=== PATIENT | male | born 1965 | race Caucasian/White ===

== ENCOUNTER 2021-11-21 23:45 | Inpatient (IN) | payer MEDICAID, OTHER ==
[~2021-11-21] VITALS: Ht 177.8 cm; Wt 74.1 kg
[~2021-11-21 23:45] MED LIST: AMBI5TAB; ZOLO50TA
[2021-11-22] MEDS ORDERED: NEUR800T PO (00:36)
[2021-11-22 00:42] LABS: HEMATOCRIT 45.1 % (42.0-52.0); HEMOGLOBIN 14.8 g/dl (13.5-17.5); MEAN CORPUSCULAR HEMOGLOBIN 28.8 pg (27.0-33.0); MEAN CORPUSCULAR HGB CONC 32.8 g/dl (32.0-36.5); MEAN CORPUSCULAR VOLUME 87.9 fl (80.0-96.0); PLATELET COUNT, AUTOMATED 356 10^3/uL (150-450); RED BLOOD COUNT 5.13 10^6/uL (4.30-6.10); WHITE BLOOD COUNT 8.2 10^3/uL (4.0-10.0)
[2021-11-22 01:14] LABS: ALBUMIN 4.2 GM/DL (3.2-5.2); ALT/SGPT 26 U/L (12-78); BILIRUBIN,DIRECT 0.3 MG/DL (0.0-0.2); BILIRUBIN,TOTAL 0.7 MG/DL (0.2-1.0); BLOOD UREA NITROGEN 11 MG/DL (7-18); CALCIUM LEVEL 9.6 MG/DL (8.5-10.1); CARBON DIOXIDE LEVEL 27 MEQ/L (21-32); CHLORIDE LEVEL 106 MEQ/L (98-107); CREATININE FOR GFR 0.89 MG/DL (0.70-1.30); ETHYL ALCOHOL (ETHANOL) 0.022 % (0.000-0.010); GLOMERULAR FILTRATION RATE > 60.0 (>56); GLUCOSE, FASTING 80 MG/DL (70-100); POTASSIUM SERUM 3.7 MEQ/L (3.5-5.1); SALICYLATE LEVEL 2.7 MG/DL (5.0-30.0); SODIUM LEVEL 140 MEQ/L (136-145); TOTAL PROTEIN 7.9 GM/DL (6.4-8.2)
[2021-11-22 01:15] LABS: ACETAMINOPHEN LEVEL < 2.0 UG/ML (10.0-30.0)
[2021-11-22 02:49] LABS: RSV AMPLIFICATION NEGATIVE (NEGATIVE)
[2021-11-22] MEDS ORDERED: HOME MED LIST COMPLETE! XX SCH (05:35)
[2021-11-22 05:39] LABS: AMPHETAMINES LEVEL URINE POSITIVE (NEGATIVE); BARBITURATES URINE NEGATIVE (NEGATIVE); BENZODIAZEPINES URINE NEGATIVE (NEGATIVE); CANNABINOIDS URINE POSITIVE (NEGATIVE); COCAINE METABOLITE URINE POSITIVE (NEGATIVE); METHADONE URINE NEGATIVE (NEGATIVE); OPIATES URINE NEGATIVE (NEGATIVE); PHENCYCLIDINE URINE NEGATIVE (NEGATIVE)
[2021-11-23] MEDS ORDERED: traZODone 50 MG TAB PO PRN (12:10)
[2021-11-23] MEDS ORDERED: MAALOX 30 ML SUSP *UDC PO PRN (12:10)
[2021-11-23] MEDS ORDERED: diphenhydrAMINE 25MG CAP PO PRN (12:10)
[2021-11-23] MEDS ORDERED: IBUPROFEN 400MG TAB PO PRN (12:10)
[2021-11-23] MEDS ORDERED: MOM 30ML SUSPENSION UDC PO PRN (12:10)
[2021-11-23] MEDS ORDERED: LORazepam 2 MG TAB PO PRN (12:10)
[2021-11-23] MEDS: FOLIC ACID 1 MG TAB PO SCH (13:47)
[2021-11-23] MEDS: MULTIVITAMINS/MINERALS THERAP 1 TAB PO SCH (13:47)
[2021-11-23] MEDS: NICOTINE 21MG/24HR 1 EA TRANSDERMAL TD SCH (13:48)
[2021-11-23] MEDS: THIAMINE 100 MG TAB PO SCH ×2 (13:48→21:09)
[2021-11-23 15:09] VITALS: BP 128/90
[2021-11-23] MEDS: GABAPENTIN 400MG CAP PO SCH ×2 (16:28→21:09)
[2021-11-24 05:55] VITALS: BP 107/65
[2021-11-24] MEDS: GABAPENTIN 400MG CAP PO SCH ×3 (08:25→20:33)
[2021-11-24] MEDS: FOLIC ACID 1 MG TAB PO SCH (08:25)
[2021-11-24] MEDS: THIAMINE 100 MG TAB PO SCH ×2 (08:25→20:33)
[2021-11-24] MEDS: MULTIVITAMINS/MINERALS THERAP 1 TAB PO SCH (08:25)
[2021-11-24] MEDS: NICOTINE 21MG/24HR 1 EA TRANSDERMAL TD SCH (09:00)
[2021-11-24] MEDS ORDERED: NICOTINE 21MG/24HR 1 EA TRANSDERMAL TD PRN (11:05)
[2021-11-24] MEDS: VENLAFAXINE **XR** 37.5 MG CAPSULE PO SCH (11:10)
[2021-11-24 17:56] VITALS: BP 130/82
[2021-11-24 20:32] VITALS: BP 112/82
[2021-11-24] MEDS: traZODone 50 MG TAB PO PRN (20:33)
[2021-11-25 05:55] VITALS: BP 113/73
[2021-11-25] MEDS: FOLIC ACID 1 MG TAB PO SCH (08:36)
[2021-11-25] MEDS: MULTIVITAMINS/MINERALS THERAP 1 TAB PO SCH (08:36)
[2021-11-25] MEDS: THIAMINE 100 MG TAB PO SCH ×2 (08:36→20:47)
[2021-11-25] MEDS: GABAPENTIN 400MG CAP PO SCH ×3 (08:36→20:47)
[2021-11-25] MEDS: VENLAFAXINE **XR** 37.5 MG CAPSULE PO SCH (08:36)
[2021-11-25] MEDS: NALTREXONE 50 MG TAB PO SCH (11:01)
[2021-11-25 13:54] VITALS: BP 136/84
[2021-11-25 16:39] VITALS: BP 136/84
[2021-11-25] MEDS: traZODone 50 MG TAB PO PRN (23:01)
[2021-11-26 06:21] VITALS: BP 123/72
[2021-11-26 06:30] VITALS: BP 123/72
[2021-11-26] MEDS: FOLIC ACID 1 MG TAB PO SCH (08:32)
[2021-11-26] MEDS: GABAPENTIN 400MG CAP PO SCH ×3 (08:32→21:10)
[2021-11-26] MEDS: MULTIVITAMINS/MINERALS THERAP 1 TAB PO SCH (08:32)
[2021-11-26] MEDS: NALTREXONE 50 MG TAB PO SCH (08:32)
[2021-11-26] MEDS: VENLAFAXINE **XR** 37.5 MG CAPSULE PO SCH (08:32)
[2021-11-26 18:16] VITALS: BP 111/73
[2021-11-26 19:30] VITALS: BP 111/73
[2021-11-26] MEDS: traZODone 50 MG TAB PO PRN (23:05)
[2021-11-27 06:39] VITALS: BP 109/73
[2021-11-27 06:42] VITALS: BP 109/73
[2021-11-27] MEDS ORDERED: NALT50TA4 PO (07:13)
[2021-11-27] MEDS ORDERED: NEUR800T PO (07:13)
[2021-11-27] MEDS ORDERED: TRAZ-252 PO (07:13)
[2021-11-27] MEDS ORDERED: VENL37.598 PO (07:13)
[2021-11-27] MEDS ORDERED: NICO21PAT TD (07:13)
[2021-11-27] MEDS: FOLIC ACID 1 MG TAB PO SCH (08:53)
[2021-11-27] MEDS: VENLAFAXINE **XR** 37.5 MG CAPSULE PO SCH (08:53)
[2021-11-27] MEDS: GABAPENTIN 400MG CAP PO SCH ×2 (08:53→15:14)
[2021-11-27] MEDS: MULTIVITAMINS/MINERALS THERAP 1 TAB PO SCH (08:53)
[2021-11-27] MEDS: NALTREXONE 50 MG TAB PO SCH (08:53)
== END 2021-11-27 18:36 | disposition home or self-care (01) | DRG 751 ==
LOC: M ED 23:45 → M ED INP 11-23 12:08 → M PSY 11-23 15:07
PROVIDERS: ADMIT Student in an Organized Health Care Education/Training Program; ATTEND Student in an Organized Health Care Education/Training Program
DX: F33.1 Major depressive disorder, recurrent, moderate (principal); F14.94 Cocaine use, unspecified with cocaine-induced mood disorder; F17.210 Nicotine dependence, cigarettes, uncomplicated; F10.10 Alcohol abuse, uncomplicated; F15.90 Other stimulant use, unspecified, uncomplicated; R45.851 Suicidal ideations; Z20.822 Contact with and (suspected) exposure to COVID-19; Z79.899 Other long term (current) drug therapy; M54.9 Dorsalgia, unspecified; Z63.4 Disappearance and death of family member

== ENCOUNTER 2024-10-08 21:58 | Emergency (ER) | payer BC, MEDICAID, OTHER, SELFPAY ==
[~2024-10-08] VITALS: Ht 175.3 cm; Wt 75.0 kg
[~2024-10-08 21:58] MED LIST changes: +NALT50TA4 PO; +NEUR800T PO; +NICO21PAT TD; +TRAZ-252 PO; +VENL37.598 PO
[2024-10-08 22:46] LABS: HEMATOCRIT 42.5 % (42.0-52.0); MEAN CORPUSCULAR HEMOGLOBIN 28.3 pg (27.0-33.0); MEAN CORPUSCULAR HGB CONC 32.9 g/dl (32.0-36.5); PLATELET COUNT, AUTOMATED 359 10^3/uL (150-450); RED BLOOD COUNT 4.94 10^6/uL (4.30-6.10); WHITE BLOOD COUNT 5.7 10^3/uL (4.0-10.0)
[2024-10-08 23:16] LABS: ETHYL ALCOHOL (ETHANOL) 0.008 % (0.000-0.010)
[2024-10-08 23:18] LABS: ALBUMIN 4.2 G/DL (3.2-5.2); ALKALINE PHOSPHATASE 81 U/L (40-129); ALT/SGPT 19 U/L (7.0-40); AST/SGOT 13 U/L (<34); BILIRUBIN,DIRECT 0.2 MG/DL (<0.4); BILIRUBIN,TOTAL 0.7 MG/DL (0.3-1.2); BLOOD UREA NITROGEN 11 MG/DL (9-23); CALCIUM LEVEL 9.6 MG/DL (8.5-10.1); CARBON DIOXIDE LEVEL 30 MMOL/L (20-31); CHLORIDE LEVEL 105 MMOL/L (98-107); CREATININE FOR GFR 0.64 MG/DL (0.70-1.30); GLOMERULAR FILTRATION RATE > 60.0 (>56); GLUCOSE, FASTING 133 MG/DL (60-100); POTASSIUM SERUM 3.8 MMOL/L (3.5-5.1); SALICYLATE LEVEL < 3.0 MG/DL (<30); SODIUM LEVEL 143 MMOL/L (136-145); TOTAL PROTEIN 7.8 G/DL (5.7-8.2)
[2024-10-08 23:21] LABS: THYROID STIMULATING HORMONE 2.224 uIU/ML (0.55-4.78)
[2024-10-09] MEDS ORDERED: TIZA2TA PO (00:32)
[2024-10-09] MEDS ORDERED: GABA-1635 PO (00:32)
[2024-10-09] MEDS ORDERED: IBUP-1730 PO (00:32)
[2024-10-09] MEDS ORDERED: HOME MED LIST COMPLETE! XX SCH (00:35)
[2024-10-09 01:18] VITALS: BP 133/87; TEMP 97.8; O2SAT 98
[2024-10-09 01:44] LABS: BARBITURATES URINE NEGATIVE (NEGATIVE); BENZODIAZEPINES URINE NEGATIVE (NEGATIVE); CANNABINOIDS URINE NEGATIVE (NEGATIVE); METHADONE URINE NEGATIVE (NEGATIVE); OPIATES URINE NEGATIVE (NEGATIVE); PHENCYCLIDINE URINE NEGATIVE (NEGATIVE)
[2024-10-09 02:03] LABS: AMPHETAMINES LEVEL URINE POSITIVE (NEGATIVE); COCAINE METABOLITE URINE POSITIVE (NEGATIVE)
== END 2024-10-09 02:24 | disposition home or self-care (01) ==
LOC: M ED 21:58
DX: F43.0 Acute stress reaction (principal); F17.200 Nicotine dependence, unspecified, uncomplicated; Z79.899 Other long term (current) drug therapy